=== PATIENT | male | born 1960 | race Caucasian/White ===

== ENCOUNTER 2024-07-03 20:49 | Emergency (ER) | payer MEDICARE, SELFPAY ==
[2024-07-03] VITALS (13 sets, daily range): BP systolic 161; BP diastolic 72; PULSE 33–72; RESP 10–26; TEMP 36.3; O2SAT 93–97
--- NOTE | 2024-07-03 21:07 | ED.GENADUL_ITS ---
Discharge Plan Disposition Patient Disposition: Transfer-Acute Inpatient Care Specific Acute Inpt Facility: Other Condition: Stable Discharge Details Chief Complaint: SOB Clinical Impression: Acute hypoxic respiratory failure Primary Care Provider: Mar[place],Local ED Provider: Ronda Ramos Home Meds and New Rx's Prescriptions: No Action carvedilol [Coreg] 6.25 mg tablet 6.25 mg PO BID Rx Instructions: must administer with a meal/food oxycodone-acetaminophen 5-325 mg tablet 1 tab PO Q6H losartan [Cozaar] 100 mg tablet 100 mg PO DAILY verapamil 180 mg capsule,ext rel. pellets 24 hr 180 mg PO BID rosuvastatin [Crestor] 40 mg tablet 40 mg PO DAILY insulin glargine [Lantus U-100 Insulin] 76 unit subcut QHS baclofen 20 mg tablet 20 mg PO BID insulin lispro 100 unit/mL insulin pen 26 unit subcut TID furosemide 20 mg tablet 20 mg PO DAILY celecoxib [Celebrex] 100 mg capsule 100 mg PO BID aspirin 81 mg tablet,chewable 81 mg PO DAILY Cosentyx 150 mg/mL syringe 300 mg subcut Q4W Rx Instructions: start 4 wks after last weekly dose;inject [id number] doses each in different thigh/upper arm/abdominal areas diclofenac sodium 75 mg tablet,delayed release (DR/EC) 75 mg PO BID HPI General Mode of arrival: EMS . Date/Time Provider Initiated Documentation: 07/03/24 20:54 . Limitations to Documentation: no limitations . Information obtained by: patient, family, RN/MD and old records reviewed . HPI Narrative: HPI: This is a 63-year-old male patient with history of insulin-dependent diabetes, stent placement, morbid obesity who was sent to us from [facility] for a down and back CT given that he does not fit in the CT scanner at [facility]. In brief, the patient presented with acute on chronic worsening of his shortness of breath, which has been present for 4-5 years, but worsened recently and he checked his oxygen at home and noted it to be in the low 80s. He does not wear oxygen at home. His workup at [facility] included an x-ray with a question of a basilar opacity, diminished lung sounds, and a 2 to 4 L/min oxygen requirement. They report typical electrolytes, normal kidney function with a creatinine of 0.9, and negative troponin, though his D-dimer was elevated at 0.7. He is being sent to us because his size exceeds the limit of their CT scanner, and are requesting a down and back transfer for CT PE. The patient reports shortness of breath on exertion, was able to stand and pivot to the ambulance, does have transient tachypnea but does not desaturate on 4 L of oxygen on his arrival. He does not have chest pain, fever. Exam: Gen: Awake and alert, in no apparent distress HEENT: Non-icteric sclera Neck: Supple Lungs: Notable tachypnea and increasing work of breathing with exertion, lung sounds diminished throughout CV: Appears well perfused, heart with irregular rhythm and bradycardic rate, strong distal pulses Abdomen: Non-distended MSK: Moves 4 extremities without apparent limitation in ROM Skin: Visualized skin without rashes, cyanosis. Neuro: Normal Gait, no obvious focal deficits or facial asymmetry. Speaks in full, clear sentences. Psych: Appropriate for situation. MDM: This is a 63-year-old male patient sent from [facility] with hypoxia, increased work of breathing, and a positive D-dimer. Differential includes but is not limited to pulmonary embolism, certainly considered pneumonia, MARCIA, obesity hypoventilation. Considered arrhythmia cardiac disease. The plan discussed with [facility] was for this patient to have his CT scan and unless there were emergent findings requiring immediate action, transfer the patient back to [facility] for admission for his new hypoxia. I did review all of his labs and EKG from the outside facility, patient is in a bradycardic rhythm on telemetry, I do not appreciate any atrial activity and question atrial fibrillation versus junctional rhythm. I do note that the patient is on several AV davida blocking agents including verapamil and carvedilol. We establish an IV, and the patient was taken to CT scan. ED Course: CT scan was reviewed by myself, no pulmonary embolism or consolidations are appreciated, patient continues to require 2 to 4 L/min of oxygen. His heart rate has been between the 40s and 60s, which I suspect is likely close to baseline given the extensive AV davida blocking medications that he is on. Additionally, the patient has been hemodynamically appropriate with no hypotension, and is mentating appropriately, ANO x 4 throughout his time in our emergency department. I did call report to Dr. Kelly, ED doc at [facility], and discussed the findings. The initial plan by the sending provider was to transfer the patient back to their hospital for admission for his hypoxic respiratory failure of unknown etiology. We did discuss the patient's heart rate, I have held any home medications including his carvedilol given his heart rate, but do not feel that he warrants cardiology referral or transfer to an alternative facility at this time given his lack of chest pain, his negative troponin, and his nonischemic EKG. The patient was transferred from this department back to [facility] by EMS. They left our facility without incident and the patient remained hemodynamically appropriate while under my care. Ronda Ramos MD Related Data Home Medications ?Medication ?Instructions ?Recorded ?Confirmed aspirin 81 mg chewable tablet 81 mg PO DAILY 07/03/24 07/03/24 baclofen 20 mg tablet 20 mg PO BID 07/03/24 07/03/24 carvedilol 6.25 mg tablet (Coreg) 6.25 mg PO BID 07/03/24 07/03/24 celecoxib 100 mg capsule (Celebrex) 100 mg PO BID 07/03/24 07/03/24 diclofenac sodium 75 mg 75 mg PO BID 07/03/24 07/03/24 tablet,delayed release furosemide 20 mg tablet 20 mg PO DAILY 07/03/24 07/03/24 insulin glargine 76 unit subcut QHS 07/03/24 07/03/24 insulin lispro 100 unit/mL 26 unit subcut TID 07/03/24 07/03/24 subcutaneous pen losartan 100 mg tablet (Cozaar) 100 mg PO DAILY 07/03/24 07/03/24 oxycodone-acetaminophen 5 mg-325 1 tab PO Q6H 07/03/24 07/03/24 mg tablet rosuvastatin 40 mg tablet (Crestor) 40 mg PO DAILY 07/03/24 07/03/24 secukinumab 150 mg/mL subcutaneous 300 mg subcut Q4W 07/03/24 07/03/24 syringe (Cosentyx) verapamil 180 mg 24 hr 180 mg PO BID 07/03/24 07/03/24 capsule,extended release Allergies Allergy/AdvReac Type Severity Reaction Status Date / Time No Known Allergies Allergy Verified 07/03/24 21:51 General Stated Complaint: SOB TYSON: 3 Course Vital Signs Vital signs: Vital Signs Temperature 36.3 C L 07/03/24 20:52 Pulse 51 L 07/03/24 20:52 Respiratory Rate 26 H 07/03/24 20:52 Blood Pressure 161/72 H 07/03/24 20:52 Pulse Oximetry 93 07/03/24 20:52 Temperature 36.3 C L 07/03/24 20:52 Temperature Source Temporal Artery Scan 07/03/24 20:52 Pulse 51 L 07/03/24 20:52 Respiratory Rate 24 07/03/24 20:58 Respiratory Effort Short of Breath 07/03/24 20:58 Respiratory Depth Normal 07/03/24 20:58 Respiratory Pattern Normal 07/03/24 20:58 Blood Pressure 161/72 H 07/03/24 20:52 Blood Pressure Position Sitting 07/03/24 20:52 Pulse Oximetry 93 07/03/24 20:52 Oxygen Delivery Method Nasal Cannula 07/03/24 20:52 Oxygen Flow Rate 2 07/03/24 20:52 Pain Level 0 07/03/24 20:52 Medical Decision Making Quality:SDOH Health Related Social Needs: No Data to Display PFSH All Active Problems (Updated 07/03/24 @ 23:22 by Ronda Ramos MD) Acute hypoxic respiratory failure (Acute) Social History Smoking/Tobacco Use Status: Never Smoking risk assessment performed?: Yes Alcohol Intake: never Drug use: Daily Substance use type: marijuana Housing: house Do you feel safe at home: Yes Do you feel safe in your relationship?: Yes
[2024-07-03] MEDS: Normal Saline - Diluent 50 ML VIAL IJ (21:50)
[2024-07-03] MEDS: Omnipaque 350 MG/ML 100 ML BTL IJ (21:51)
--- NOTE | 2024-07-03 21:53 | DI.CT_ITS ---
Exam(s) CT CHEST PE CTA EXAM: CT CHEST PE CTA CLINICAL HISTORY: SOB, hypoxia, elevated dimer. TECHNIQUE: Imaging Protocol: Axial CT angiography was performed with multi-slice acquisition and mu lti-planar reconstructions as well as axial, coronal and sagittal MIP reconstructions. Computer aided detection (CAD) was utilized. CONTRAST MATERIAL: Intravenous: Omnipaque 350 Contrast volume:100 ml COMPARISON: No exams were available for comparison FINDINGS: Exam is limited by patient body habitus. Pulmonary Arteries: No evidence of filling defect to suggest pulmonary emboli. Mediastinum and [place]: No dominant adenopathy or fluid collection. Pulmonary parenchyma: No consolidation or dominant measurable mass. Pleura: No effusion or pneumothorax. Heart: The heart is not dilated. Moderate coronary artery calcifications are seen. Aorta: Thoracic aorta non-dilated. No dissection. Upper abdomen: No acute findings. Bones: Degenerative disc changes. Tubes, Catheters, and Lines: None Soft tissues: Unremarkable. IMPRESSION: No evidence of pulmonary embolism or other acute abnormality. RADIATION DOSE DELIVERED: Total DLP DATA REPOSITORY: All CT scans at this facility are submitted to the National Radiology Data Registry (NRDR) Dose Index Registry (DIR) with the [employer] ([employer]). RADIATION OPTIMIZATION: All CT scans at this facility use at least one of these dose optimization te chniques: automated exposure control; mA and/or kV adjustment per patient size (includes targeted exa ms where dose is matched to clinical indication); or iterative reconstruction.
--- NOTE | 2024-07-03 23:03 | DI.VRAD_ITS ---
PROCEDURE INFORMATION: Exam: CTA Chest With Contrast Exam date and time: 07/03/2024 9:25 PM Age: 63 years old Clinical indication: Other: SOB, hypoxia, elevated dimer TECHNIQUE: Imaging protocol: Computed tomographic angiography of the chest with contrast. Exam focused on the arteries. 3D rendering (Not supervised by radiologist): MIP and/or 3D reconstructed images were created by the technologist. Contrast material: OMNIPAQUE 350; Contrast volume: 100 ml; Contrast route: INTRAVENOUS (IV); COMPARISON: No relevant prior studies available. FINDINGS: Pulmonary arteries: There are no filling defects in the pulmonary arteries to suggest pulmonary emboli. Aorta: There is no thoracic aortic aneurysm. Lungs: There is no evidence of focal pulmonary consolidation. No lung masses are seen. Pleural spaces: Unremarkable. No pneumothorax. No pleural effusion. Heart: The heart is normal in size. There are no pericardial fluid collections. Coronary arteries: There is moderate atherosclerotic calcification of the coronary arteries. Lymph nodes: No enlarged mediastinal or hilar lymph nodes are seen. Bones/joints: There is no evidence of acute fracture. Multilevel degenerative disc disease without significant central spinal canal stenosis. Soft tissues: Unremarkable. IMPRESSION: 1. No evidence of pulmonary embolus. 2. No consolidation. 3. No acute findings. Dictated and Authenticated by: Andres Norton MD. Orderin [facility]. Deion Bond MD
== END 2024-07-03 23:23 | disposition short-term general hospital (02) ==
PROVIDERS: Emergency Provider Emergency Medicine; PCP Internal Medicine
DX: J96.01 Acute respiratory failure with hypoxia (principal); E11.9 Type 2 diabetes mellitus without complications; Z79.4 Long term (current) use of insulin
CPT/HCPCS: 36415; 71275; 99285; J3490